=== PATIENT | female | born 1980 | race Caucasian/White ===

== ENCOUNTER 2017-10-27 14:17 | Emergency (ER) | END 2017-10-27 17:10 | disposition home or self-care (01) ==

== ENCOUNTER 2017-12-23 17:11 | Emergency (ER) | END 2017-12-23 18:46 | disposition home or self-care (01) ==

== ENCOUNTER 2018-12-04 21:44 | Emergency (ER) | payer MEDICAID ==
[~2018-12-04] VITALS: Ht 157.5 cm; Wt 73.8 kg
[~2018-12-04 21:44] MED LIST: AMOX500C2 PO; IBUP-1542 PO; IBUP-1561 PO; NAPR-985 PO; PREN1TAB49 PO
[2018-12-04 21:58] VITALS: Ht 157.5 cm; Wt 73.8 kg
[2018-12-05 04:49] VITALS: BP 102/41; PULSE 66; RESP 16
== END 2018-12-05 05:37 | disposition home or self-care (01) ==
LOC: E/R 21:44
DX: R07.89 Other chest pain (principal)
CPT/HCPCS: 36415; 71045; 80048; 81025; 84484; 85025; 93005; Z7502